=== PATIENT | female | born 1945 | race Caucasian/White ===

== ENCOUNTER 2020-03-08 18:59 | Inpatient (IN) ==
[2020-03-09] MEDS ORDERED: ACETAMINOPHEN 325 MG TABLET PO PRN (00:35)
[2020-03-09] MEDS ORDERED: ONDANSETRON 4 MG/2 ML VIAL IV PRN (00:35)
[2020-03-09] MEDS ORDERED: GLUCAGON 1 MG VIAL IM PRN (00:35)
[2020-03-09] MEDS ORDERED: DEXTROSE 50% 25 GM/50 ML VIAL IV PRN (00:35)
[2020-03-09] MEDS ORDERED: DOCUSATE SODIUM 100 MG CAPSULE PO PRN (00:35)
[2020-03-09] MEDS ORDERED: SODIUM CHLORIDE 0.9% 1,000 ML IV PRN (01:05)
[2020-03-09 01:53] LABS: Alanine Aminotransferase 43 U/L (13-56); Albumin 3.2 G/DL (3.4-5.0); Alkaline Phosphatase 55 U/L (45-117); Aspartate Amino Transferase 52 U/L (0-37); Bilirubin,Total < 0.39 MG/DL (0.2-1.0); Blood Urea Nitrogen 27 MG/DL (7-18); Calcium 7.8 MG/DL (8.5-10.1); Carbon Dioxide 22 MMOL/L (21-32); Estimated Glom Filtration Rate 57 ML/MIN; Glucose 75 MG/DL (74-106); Osmolality,Calculated 289.8 MOS/KG (273-304); Potassium 3.3 MMOL/L (3.5-5.1); Sodium 144 MMOL/L (136-145); Total Protein 5.8 G/DL (6.4-8.3)
[2020-03-09 02:00] LABS: PT Patient Result 11.2 SECS (9.8-11.9); Partial Thromboplastin Time 35.9 SECS (23.9-33.8)
[2020-03-09] MEDS ORDERED: ALBUTEROL/IPRATROPIUM 3 ML NEB RESP TX PRN (02:17)
[2020-03-09] MEDS ORDERED: MAGNESIUM SULF RIDER 4 GM in PREMIX 1 EACH IV PRN (02:18)
[2020-03-09] MEDS ORDERED: MAGNESIUM SULF RIDER 2 GM in PREMIX 1 EACH IV PRN (02:18)
[2020-03-09 02:22] LABS: Basophils # 0.1 10*3/uL (0.0-0.2); Basophils % 1.1 % (0.0-0.8); Eosinophils # 0.1 10*3/uL (0.0-0.87); Eosinophils % 0.6 % (0.00-10.9); Hematocrit 24.1 VOL% (35.7-47.0); Immature Granulocytes % 1.5 %; Immature Granulocytes Absolute 0.12 #; Lymphocytes # 1.3 10*3/uL (1.4-4.0); Lymphocytes % 15.7 % (21.3-54.2); Mean Corpuscular HGB Conc 33.2 GM/DL (32-36); Mean Corpuscular Volume 98.8 FL (87-102); Mean Platelet Volume 12.5 FL (9.6-12.0); Monocytes % 7.4 % (1.7-12.7); Neutrophils % 73.7 % (38.7-73.9); Platelet Count 179 T/CUMM (130-400); Red Blood Count 2.44 MC/CUMM (3.8-5.5); Red Cell Distribution Width 15.9 % (9.3-17.3)
[2020-03-09] MEDS: cefTRIAXone 1,000 MG in SYRINGE 1 EACH IV SCH (02:40)
[2020-03-09] MEDS: AZITHROMYCIN INJ 500 MG in SODIUM CHLORIDE 0.9% 250 ML IV SCH (02:49)
[2020-03-09] MEDS: POTASSIUM CHLORIDE RIDER 10 MEQ in PREMIX 1 EACH IV PRN ×4 (04:28→07:45)
[2020-03-09 07:33] LABS: Hematocrit 25.1 VOL% (35.7-47.0); Hemoglobin 8.3 GM/DL (12.0-16.0)
[2020-03-09] MEDS: PANTOPRAZOLE 40 MG VIAL IV SCH ×2 (09:01→22:42)
[2020-03-09] MEDS: SODIUM CHLORIDE 0.9% 1,000 ML IV SCH ×2 (09:02→22:46)
[2020-03-09] MEDS: POTASSIUM CHLORIDE RIDER 10 MEQ in PREMIX 1 EACH IV SCH ×4 (11:55→15:15)
[2020-03-09 13:20] LABS: Hematocrit 23.1 VOL% (35.7-47.0); Hemoglobin 7.6 GM/DL (12.0-16.0)
[2020-03-09 19:11] LABS: Hematocrit 25.2 VOL% (35.7-47.0); Hemoglobin 8.1 GM/DL (12.0-16.0)
[2020-03-10] MEDS: cefTRIAXone 1,000 MG in SYRINGE 1 EACH IV SCH (03:09)
[2020-03-10] MEDS: AZITHROMYCIN INJ 500 MG in SODIUM CHLORIDE 0.9% 250 ML IV SCH (03:16)
[2020-03-10 05:47] LABS: Basophils # 0.1 10*3/uL (0.0-0.2); Basophils % 1.8 % (0.0-0.8); Eosinophils # 0.1 10*3/uL (0.0-0.87); Hematocrit 23.7 VOL% (35.7-47.0); Hemoglobin 7.6 GM/DL (12.0-16.0); Immature Granulocytes % 1.3 %; Immature Granulocytes Absolute 0.07 #; Lymphocytes # 1.5 10*3/uL (1.4-4.0); Lymphocytes % 26.5 % (21.3-54.2); Mean Corpuscular HGB Conc 32.1 GM/DL (32-36); Mean Corpuscular Volume 101.7 FL (87-102); Mean Platelet Volume 11.7 FL (9.6-12.0); Monocytes % 6.2 % (1.7-12.7); Neutrophils % 62.2 % (38.7-73.9); Platelet Count 206 T/CUMM (130-400); Red Blood Count 2.33 MC/CUMM (3.8-5.5); Red Cell Distribution Width 17.7 % (9.3-17.3); White Blood Count 5.5 T/CUMM (4-12)
[2020-03-10 06:10] LABS: Calcium 7.2 MG/DL (8.5-10.1); Osmolality,Calculated 286.7 MOS/KG (273-304); Potassium 3.9 MMOL/L (3.5-5.1)
[2020-03-10 06:14] LABS: Albumin 2.9 G/DL (3.4-5.0); Bilirubin,Total 0.4 MG/DL (0.2-1.0); Calcium 7.1 MG/DL (8.5-10.1); Osmolality,Calculated 286.7 MOS/KG (273-304); Potassium 3.8 MMOL/L (3.5-5.1); Total Protein 5.5 G/DL (6.4-8.3)
[2020-03-10 06:21] LABS: PT Patient Result 11.1 SECS (9.8-11.9)
[2020-03-10] MEDS: PANTOPRAZOLE 40 MG VIAL IV SCH ×2 (09:59→20:25)
[2020-03-10] MEDS ORDERED: CLORAZEPATE 3.75 MG TABLET PO PRN (10:31)
[2020-03-10] MEDS: DOXYCYCLINE HYCLATE INJ 100 MG in SODIUM CHLORIDE 0.9% 100 ML IV SCH ×2 (13:31→20:34)
[2020-03-10] MEDS: DEXTROSE 5% NACL 0.45% 1,000 ML IV SCH (13:31)
[2020-03-10] MEDS: LORazepam 2 MG/1 ML VIAL IV PRN ×2 (14:54→20:06)
[2020-03-11] MEDS: LORazepam 2 MG/1 ML VIAL IV PRN ×4 (02:34→20:40)
[2020-03-11] MEDS: cefTRIAXone 1,000 MG in SYRINGE 1 EACH IV SCH (02:36)
[2020-03-11] MEDS ORDERED: LACTATED RINGERS 1,000 ML IV SCH (06:30)
[2020-03-11 06:43] LABS: PT Patient Result 10.8 SECS (9.8-11.9)
[2020-03-11 07:59] LABS: Basophils # 0.1 10*3/uL (0.0-0.2); Basophils % 1.7 % (0.0-0.8); Eosinophils # 0.1 10*3/uL (0.0-0.87); Hematocrit 30.5 VOL% (35.7-47.0); Immature Granulocytes % 1.1 %; Immature Granulocytes Absolute 0.07 #; Lymphocytes # 1.4 10*3/uL (1.4-4.0); Lymphocytes % 22.7 % (21.3-54.2); Mean Corpuscular HGB Conc 32.1 GM/DL (32-36); Mean Corpuscular Volume 97.4 FL (87-102); Mean Platelet Volume 11.3 FL (9.6-12.0); Neutrophils % 66.5 % (38.7-73.9); Platelet Count 224 T/CUMM (130-400); Red Blood Count 3.13 MC/CUMM (3.8-5.5); Red Cell Distribution Width 18.6 % (9.3-17.3); White Blood Count 6.4 T/CUMM (4-12)
[2020-03-11 08:00] LABS: Hemoglobin 9.8 GM/DL (12.0-16.0)
[2020-03-11 08:19] LABS: Calcium 7.7 MG/DL (8.5-10.1); Osmolality,Calculated 280.1 MOS/KG (273-304); Potassium 3.6 MMOL/L (3.5-5.1)
[2020-03-11] MEDS ORDERED: AZITHROMYCIN 250 MG TABLET PO SCH (09:00)
[2020-03-11] MEDS: NICOTINE 7 MG/24 HR PATCH TRANSDERM SCH (09:41)
[2020-03-11] MEDS: PANTOPRAZOLE 40 MG VIAL IV SCH ×2 (09:41→20:39)
[2020-03-11] MEDS: DEXTROSE 5% NACL 0.45% 1,000 ML IV SCH ×2 (11:06→17:15)
[2020-03-11] MEDS: DOXYCYCLINE HYCLATE INJ 100 MG in SODIUM CHLORIDE 0.9% 100 ML IV SCH (11:47)
[2020-03-11] MEDS ORDERED: LIDOCAINE 2% 5 ML VIAL ONE (13:01)
[2020-03-11] MEDS ORDERED: ETOMIDATE 20 MG/10 ML VIAL IV ONE (13:01)
[2020-03-11] MEDS ORDERED: propofoL 200 MG/20 ML VIAL IV ONE (13:01)
[2020-03-11] MEDS ORDERED: BISACODYL 5 MG TABLET PO ONE (15:00)
[2020-03-11] MEDS ORDERED: ZIPRASIDONE 20 MG/1 ML VIAL IM ONE (15:30)
[2020-03-11] MEDS ORDERED: POLYETHYLENE GLYCOL POWDER 255 GM BOTTLE PO ONE (18:00)
[2020-03-11] MEDS: SODIUM CHLORIDE 0.9% 1,000 ML IV SCH (20:04)
[2020-03-12] MEDS: DEXTROSE 5% NACL 0.45% 1,000 ML IV SCH ×2 (05:56→14:57)
[2020-03-12] MEDS ORDERED: POLYETHYLENE GLYCOL POWDER 255 GM BOTTLE PO ONE (06:00)
[2020-03-12] MEDS: NICOTINE 7 MG/24 HR PATCH TRANSDERM SCH (12:48)
[2020-03-12] MEDS: LORazepam 2 MG/1 ML VIAL IV PRN (19:42)
[2020-03-12] MEDS: PANTOPRAZOLE 40 MG VIAL IV SCH ×2 (19:45→20:58)
[2020-03-13] MEDS: DEXTROSE 5% NACL 0.45% 1,000 ML IV SCH (00:53)
[2020-03-13] MEDS ORDERED: LACTATED RINGERS 1,000 ML IV SCH (08:21)
[2020-03-13] MEDS: NICOTINE 7 MG/24 HR PATCH TRANSDERM SCH (09:09)
[2020-03-13] MEDS: PANTOPRAZOLE 40 MG VIAL IV SCH (09:10)
[2020-03-13] MEDS: POTASSIUM CHLORIDE RIDER 10 MEQ in PREMIX 1 EACH IV PRN (09:15)
[2020-03-13] MEDS ORDERED: propofoL 200 MG/20 ML VIAL IV ONE (12:54)
[2020-03-13] MEDS ORDERED: LIDOCAINE 2% 5 ML VIAL ONE (12:54)
[2020-03-13] MEDS ORDERED: ePHEDrine 50 MG/ML VIAL ONE (12:56)
[2020-03-13] MEDS ORDERED: PHENYLEPHRINE 1 MG/10 ML SYRINGE IV ONE (13:05)
[2020-03-13 18:24] VITALS: BP 118/62
== END 2020-03-13 18:05 | disposition home or self-care (01) | DRG 378 ==
LOC: N.3E 21:47 → SUATTDRO 21:47
PROVIDERS: ADMIT Internal Medicine; ATTEND Internal Medicine Geriatric Medicine